=== PATIENT | male | born 1945 | race Caucasian/White ===

== ENCOUNTER 2019-08-28 18:45 | Inpatient (IN) | payer MEDICARE, OTHER ==
[~2019-08-28] VITALS: Ht 177.8 cm; Wt 95.2 kg
[~2019-08-28 18:45] MED LIST: ASPIRIN 32325 MG/TAB PO; CALCIUM PO; EPA FISH OIL1000 MG PO; EPA1000 MG PO; HEPARIN SOD5000 U/ML IV; LIPITOR 10MG10 MG PO; MAGNESI PO; SAW PALMETTO160 MG; TRANDATE5 MG/ML IV; TYLENOL 325MG325 MG PO; VITAMIN C500 MG PO; VITAMIN D2000 I1 PO; Z-BEC1 TAB; ZESTRIL 20MG TA20 MG PO; ZINC15 M1 PO
[2019-08-28] MEDS ORDERED: FLOMAX 0.40.4 MG/CAP PO (18:55)
[2019-08-28] MEDS ORDERED: HCTZ 25MG TAB25 MG PO (18:55)
[2019-08-28] MEDS ORDERED: PRINIVIL40 MG PO (18:55)
[2019-08-28] MEDS ORDERED: ELIQUIS 5MG PO (18:55)
[2019-08-28 19:15] LABS: BASO % 0.1 % (0.0-2.0); EOS % 0.1 % (0-4.0); GRAN # 15.4 (1.4-6.5); GRAN % 87.1 % (42.2-75.2); HEMATOCRIT 43.3 % (42.0-52.0); LYMPH # 0.9 (1.2-3.4); LYMPH % 4.9 % (20.0-51.0); MEAN CELL VOLUME 93 fl (80.0-100.0); MEAN CORPUSCULAR HEMOGLOBIN 32 pg (27.0-31.0); MEAN CORPUSCULAR HGB CONC 35 g/dl (33.0-37.0); MEAN PLATELET VOLUME 10.1 fl (7.4-10.4); MONO # 1.3 (0.1-0.6); MONO % 7.3 % (1.7-9.3); PLATELET COUNT 183 K/mm3 (130-400); RED BLOOD COUNT 4.68 M/mm3 (4.20-5.60); REDCELL DISTRIBUTION WIDTH-CV 12.6 % (11.5-14.5)
[2019-08-28 19:16] LABS: INR 1.3 (0.8-3.0); PROTHROMBIN TIME 15.7 SECONDS (9.7-12.8)
[2019-08-28 19:47] LABS: ALBUMIN 4.3 gm/dL (3.5-5.0); BILIRUBIN,TOTAL 1.2 mg/dL (0.0-1.0); CALCIUM 9.4 mg/dL (8.4-10.2); CREATININE, serum 1.64 (0.66-1.25); POTASSIUM 3.6 mmol/L (3.4-5.0); TOTAL PROTEIN 7.7 gm/dL (6.4-8.2)
[2019-08-28 19:58] LABS: C-REACTIVE PROTEIN 23.6 mg/dL (0.0-0.9)
--- NOTE | 2019-08-28 22:05 | NUR ---
recieved report from FAUSTO Gibson. patient is stable.
--- NOTE | 2019-08-28 22:30 | NUR ---
Patient arrived to ICU rm 11, via wheelchair. patient is stable upon arrival, unmonitored on tele, on RA. accompanied by FAUSTO Gibson.
[2019-08-28 22:58] VITALS: O2SAT 85
[2019-08-28 23:00] VITALS: O2SAT 94
[2019-08-28 23:01] VITALS: BP 141/30; PULSE 92; TEMP 99.8
[2019-08-28 23:07] LABS: COLLECTION METHOD CLEAN CATCH
[2019-08-28 23:14] LABS: MUCOUS Present /lpf; PH 5 (5-8); SQUAMOUS EPITHELIAL 0-2 /hpf; URINE APPEARANCE Clear; URINE BACTERIA None Seen /hpf; URINE BILIRUBIN Negative (NEGATIVE); URINE BLOOD Negative (NEGATIVE); URINE COLOR Yellow; URINE GLUCOSE Negative (NEGATIVE); URINE KETONE Trace (NEGATIVE); URINE LEUKOCYTE ESTERASE Negative (NEGATIVE); URINE NITRATE Negative (NEGATIVE); URINE PROTEIN(semi-quant) Negative (NEGATIVE); URINE RBC 0-2 /hpf; URINE UROBILINOGEN Negative (NEGATIVE)
[2019-08-29] VITALS (407 sets, daily range): BP systolic 103–141; BP diastolic 30–71; PULSE 63–92; TEMP 97.9–99.8; O2SAT 69–100
--- NOTE | 2019-08-29 00:17 | NUR ---
PT IS A PUI UNTIL TEST COMES BACK. UNTIL PTS RESULTS COME BACK WILL NOT USE HOME CPAP. PT IS ON ROOM AIR WITH NO DISTRES AND HIS SATURATIONS ARE FINE. WILL CONTINUE TO MONITOR AND ASSESS.
[2019-08-29 05:43] LABS: BASO % 0.1 % (0.0-2.0); EOS % 0.2 % (0-4.0); GRAN # 10.8 (1.4-6.5); GRAN % 85.8 % (42.2-75.2); HEMATOCRIT 37.2 % (42.0-52.0); LYMPH # 0.6 (1.2-3.4); LYMPH % 5.1 % (20.0-51.0); MEAN CELL VOLUME 94 fl (80.0-100.0); MEAN CORPUSCULAR HEMOGLOBIN 32 pg (27.0-31.0); MEAN CORPUSCULAR HGB CONC 34 g/dl (33.0-37.0); MEAN PLATELET VOLUME 9.9 fl (7.4-10.4); MONO # 1.1 (0.1-0.6); MONO % 8.3 % (1.7-9.3); PLATELET COUNT 128 K/mm3 (130-400); RED BLOOD COUNT 3.98 M/mm3 (4.20-5.60); REDCELL DISTRIBUTION WIDTH-CV 12.6 % (11.5-14.5)
[2019-08-29 05:50] LABS: HEMOGLOBIN 12.7 g/dl (13.5-18.0)
[2019-08-29 05:54] LABS: ALBUMIN 3.4 gm/dL (3.5-5.0); BILIRUBIN,TOTAL 0.9 mg/dL (0.0-1.0); CALCIUM 8.3 mg/dL (8.4-10.2); CREATININE, serum 1.44 (0.66-1.25); POTASSIUM 3.7 mmol/L (3.4-5.0); TOTAL PROTEIN 6.4 gm/dL (6.4-8.2)
--- NOTE | 2019-08-29 07:02 | NUR ---
Gave report to FAUSTO Alatorre.
--- NOTE | 2019-08-29 08:30 | NUR ---
Pt assessment complete. Pt is sleeping in bed upon entry, he arouses to voice and is oriented x4. His breathing is even and unlabored on RA. Pt denies any SOB or cough. Pt denies N/V at this time. No diarrhea. Reports "heaviness" to upper mid abdomen. Feels his stomach is softer than yesterday. Pt denies N/T. IVF infusing without complications. No needs at this time. POC discussed with patient. Will continue to monitor.
--- NOTE | 2019-08-29 18:46 | NUR ---
Pt had uneventful day. Tolerated Clear liquids without worsening pain, but remained bloated. No BM's today. No respiratory symptoms. Denies needs at this time. Call light within reach.
--- NOTE | 2019-08-29 19:28 | NUR ---
Assessment complete. Resting in bed, watching television. C/O abdominal bloating. States no BM since 08/27/19. Reports does not feel like eating r/t adominal bloating. Reports pain in abdomen "5", but states that he does not want any pain medication at this time. Denies needs at this time.
--- NOTE | 2019-08-29 23:30 | NUR ---
Transferred from IMCU bed for surgical floor at this time- Up in room indepenedent- steady on feet- IV fluids of NS at 125cc/hr- getting IV Flagyl and Cipro per orders- tolerating some clear liquids- abd is distended, semifirm, faint bowel sounds, states abd pain 5/10 but does not want any pain meds at this time- Lung sounds clear- no SOB.
[2019-08-30] VITALS (7 sets, daily range): BP systolic 92–123; BP diastolic 48–71; PULSE 62–73; TEMP 98.3–99.4
--- NOTE | 2019-08-30 07:43 | NUR ---
Quiet night- Up to bathroom, voiding without problems- B/P low 90,s systolic- stable- denies need for pain meds-
--- NOTE | 2019-08-30 08:00 | NUR ---
PATIENT IS A&O. VSS. DENIES PAIN. PATIENT C/O FEELING DISTENDED. ABD IS DISTENDED, SOFT AND WITH POSITIVE BOWL SOUNDS. NO C/O N/V. PATIENT REPORTS HE IS PASSING SMALL AMOUNTS OF GAS. NO BM SINCE FRIDAY. IV FLUIDS INFUSING IV PUMP INTO LEFT AC IV. PATIENT TOLERATING CLEAR LIQUID DIET. HEAD TO TOE ASSESSMENT WNL. AM MEDS GIVEN. NO OTHER NEEDS AT THIS TIME. CALL LIGHT IN REACH.
[2019-08-30 08:22] LABS: BASO % 0.1 % (0.0-2.0); EOS # 0.2 (0.0-0.7); EOS % 1.8 % (0-4.0); GRAN # 7.6 (1.4-6.5); HEMATOCRIT 37.1 % (42.0-52.0); HEMOGLOBIN 12.5 g/dl (13.5-18.0); LYMPH # 0.6 (1.2-3.4); LYMPH % 6.9 % (20.0-51.0); MEAN CELL VOLUME 95 fl (80.0-100.0); MEAN CORPUSCULAR HEMOGLOBIN 32 pg (27.0-31.0); MEAN CORPUSCULAR HGB CONC 34 g/dl (33.0-37.0); MEAN PLATELET VOLUME 10.2 fl (7.4-10.4); MONO # 0.6 (0.1-0.6); MONO % 6.9 % (1.7-9.3); PLATELET COUNT 145 K/mm3 (130-400); RED BLOOD COUNT 3.89 M/mm3 (4.20-5.60); REDCELL DISTRIBUTION WIDTH-CV 12.7 % (11.5-14.5)
[2019-08-30 08:33] LABS: CREATININE, serum 1.48 (0.66-1.25); POTASSIUM 3.7 mmol/L (3.4-5.0)
[2019-08-30 08:34] LABS: CALCIUM 8.2 mg/dL (8.4-10.2)
--- NOTE | 2019-08-30 13:12 | NUR ---
Animal Care Giver met with patient to discuss discharge planning. Patient lives in [place] with his Lia (ph#[phone]) [address] sees Dr. Lisbet Aquino for primary care. Patient obtains medications from [facility] with no difficulties. Patient uses a CPAP and no other DME at home. Patient is independent with ADLS and plans to return home upon discharge. Patient does not have DPOA-HC but was interested in taking home the form. SW provided. No additional needs at this time.
--- NOTE | 2019-08-30 13:30 | NUR ---
PATIENT AMBULATING IN HALLWAY INDEPENDENTLY WITH STEADY GAIT. PATIENT TOLERATING ACTIVITY WELL.
--- NOTE | 2019-08-30 20:20 | NUR ---
Initial shift assessment done- was up to bathroom and had some loose stool small amount- was sent to lab for testing as ordered. Abd remains distended, semi firm-pt rates abd pain 4/10 tonight- does not want any pain meds, IV Fluids of NS at 75cc/hr, tolerating some clear liquids without nausea- VSS, temp 99.4,,Ready to take a shower tonight- did take long walk in the halls
--- NOTE | 2019-08-30 23:28 | NUR ---
PT NOT WANTING TO WEAR CPAP WHILE HERE, WILL CONTINUE TO MONITOR.
[2019-08-31 04:30] VITALS: BP 117/71; PULSE 65; TEMP 98.8
--- NOTE | 2019-08-31 05:53 | NUR ---
Has had a quiet night- states did get some sleep- GI panel came back negative, Up on own , states voided numerous times during the night
[2019-08-31 06:25] LABS: BASO % 0.2 % (0.0-2.0); EOS # 0.1 (0.0-0.7); EOS % 2.5 % (0-4.0); GRAN # 4.5 (1.4-6.5); GRAN % 79.1 % (42.2-75.2); HEMOGLOBIN 11.8 g/dl (13.5-18.0); LYMPH # 0.5 (1.2-3.4); LYMPH % 8.8 % (20.0-51.0); MEAN CELL VOLUME 95 fl (80.0-100.0); MEAN CORPUSCULAR HEMOGLOBIN 32 pg (27.0-31.0); MEAN CORPUSCULAR HGB CONC 33 g/dl (33.0-37.0); MONO # 0.5 (0.1-0.6); PLATELET COUNT 136 K/mm3 (130-400); RED BLOOD COUNT 3.72 M/mm3 (4.20-5.60); REDCELL DISTRIBUTION WIDTH-CV 12.4 % (11.5-14.5)
[2019-08-31 06:33] LABS: HEMATOCRIT 35.4 % (42.0-52.0)
[2019-08-31 06:36] LABS: CALCIUM 8.3 mg/dL (8.4-10.2); CREATININE, serum 1.36 (0.66-1.25); MAGNESIUM 2.1 mg/dL (1.6-2.3); POTASSIUM 3.7 mmol/L (3.4-5.0)
[2019-08-31 06:48] LABS: C-REACTIVE PROTEIN 15.1 mg/dL (0.0-0.9)
[2019-08-31 08:28] VITALS: BP 118/63; PULSE 71; TEMP 98.5
[2019-08-31] MEDS ORDERED: CIPRO 500MG TA500 MG PO (11:00)
[2019-08-31] MEDS ORDERED: FLAGYL500 MG PO (11:00)
--- NOTE | 2019-08-31 11:01 | NUR ---
The patient is to tentatively discharge home today, 08/30. SW met with the patient to revisit the discharge plan of home. The patient has no concerns or needs at this time. He is ambulating well in the halls and will not need services. There are no additional needs at this time.
[2019-08-31 12:00] VITALS: BP 132/74; PULSE 77; TEMP 98.9
--- NOTE | 2019-08-31 14:32 | NUR ---
PT HAD AN UNEVENTFUL DAY. ONCE PT WAS ABLE TO FINISH A MEAL, PT CAN LEAVE. PT HAD A LARGE BOWEL MOVEMENT AND ATE ALL HIS LUNCH. PT JUST DISCHARGED. NO FURTHER CONCERNS.
== END 2019-08-31 14:35 | disposition home or self-care (01) | DRG 392 ==
LOC: COL.ER 18:45 → SURG 20:34 → EDBEDREQ 20:42 → EU 22:08 → SURG 08-29 23:59
PROVIDERS: Emergency Medicine; Nurse Practitioner Family; Physician Assistant; ADMIT Family Medicine
DX: K52.9 Noninfective gastroenteritis and colitis, unspecified (principal); E87.1 Hypo-osmolality and hyponatremia; K56.7 Ileus, unspecified; J98.11 Atelectasis; I48.91 Unspecified atrial fibrillation; D72.810 Lymphocytopenia; D72.829 Elevated white blood cell count, unspecified; Z20.828 Contact with and (suspected) exposure to other viral communicable diseases; I48.0 Paroxysmal atrial fibrillation; E87.8 Other disorders of electrolyte and fluid balance, not elsewhere classified; N18.9 Chronic kidney disease, unspecified; I95.9 Hypotension, unspecified; G47.33 Obstructive sleep apnea (adult) (pediatric); N40.0 Benign prostatic hyperplasia without lower urinary tract symptoms; I12.9 Hypertensive chronic kidney disease with stage 1 through stage 4 chronic kidney disease, or unspecified chronic kidney disease; Z87.891 Personal history of nicotine dependence; Z86.73 Personal history of transient ischemic attack (TIA), and cerebral infarction without residual deficits
CPT/HCPCS: 99222-AI; 99232-AI; G0378; J0744; J2270; J2405; J7030; Q9967

== ENCOUNTER 2021-03-12 10:54 | Outpatient (CLI) | payer MEDICARE, OTHER ==
[2021-03-12] VITALS (8 sets, daily range): BP systolic 112–128; BP diastolic 74–96; PULSE 57–85; TEMP 99.2–99.3
[~2021-03-12] VITALS: Ht 177.8 cm; Wt 92.7 kg
[~2021-03-12 10:54] MED LIST changes: +CIPRO 500MG TA500 MG PO; +ELIQUIS 5MG PO; +FLAGYL500 MG PO; +FLOMAX 0.40.4 MG/CAP PO; +HCTZ 25MG TAB25 MG PO; +PRINIVIL40 MG PO
[2021-03-12] MEDS ORDERED: MUCINEX 60600 MG/TA1 PO (11:31)
[2021-03-12] MEDS ORDERED: PRINIVIL10 MG PO (11:32)
[2021-03-12] MEDS ORDERED: PRAVACHOL 40MG40 MG PO (11:32)
[2021-03-12] MEDS ORDERED: HCTZ12.5TAB PO (11:33)
[2021-03-12] MEDS ORDERED: ZYRTEC 10MG10 MG PO (11:34)
[2021-03-12] MEDS ORDERED: ACIDOPHILIS PO (11:35)
[2021-03-12] MEDS ORDERED: ATROVENT INHALE14 GM IH (12:47)
[2021-03-12] MEDS ORDERED: TYLENOL 500MG500 MG PO (12:48)
[2021-03-12] MEDS ORDERED: FLONASEALLERGY NS (12:48)
[2021-03-12] MEDS ORDERED: ALFALFA250 MG PO (12:49)
[2021-03-12] MEDS ORDERED: ECHINACEA65 MG PO (12:50)
[2021-03-12] MEDS ORDERED: MULTIVITAMIN SEN PO (12:51)
[2021-03-12] MEDS ORDERED: MILK THISTLE150 MG PO (12:51)
[2021-03-12] MEDS ORDERED: VITAMIN C500 MG PO (12:52)
[2021-03-12] MEDS ORDERED: VITAMIN B COMPL1 SGL PO (12:53)
[2021-03-12] MEDS ORDERED: VITAMIN D31000 I1 PO (12:53)
[2021-03-12] MEDS ORDERED: ZINC SULFATE 1566 MG PO (12:54)
[2021-03-12] MEDS ORDERED: NATURAL E400 IU PO (12:54)
[2021-03-12] MEDS ORDERED: NATURAL SAW PA160 MG PO (12:55)
[2021-03-12] MEDS ORDERED: THE MEDICINE S200 M2 PO (12:56)
[2021-03-12] MEDS ORDERED: GINKGO2 PO (12:57)
[2021-03-12] MEDS ORDERED: GLUCOSAMINE SU500 M2 PO (12:58)
== END 2021-03-12 14:52 | disposition home or self-care (01) ==
LOC: EUO 10:54
DX: J02.9 Acute pharyngitis, unspecified (principal); Z23 Encounter for immunization
CPT/HCPCS: M0243; Q0244